=== PATIENT | male | born 1985 | race Caucasian/White ===

== ENCOUNTER 2023-05-26 06:02 | Day surgery (SDC) | payer OTHER, SELFPAY ==
[2023-05-26] VITALS (8 sets, daily range): BP systolic 102–114; BP diastolic 74–86; PULSE 54–67; RESP 16–17; TEMP 36.4–36.9; O2SAT 99–100; BMI 22.1
--- OUTSIDE RECORDS SUMMARY | 2023-05-26 06:14 | XMS RPT_ITS | CCD ---
Author Name Unknown Address [facility] [place] [address] Organization [facility] Care Team Providers Care Correctional Nurse Name Role Phone ERYN LEÓN Referring Unavailable ERYN LEÓN Consulting Unavailable KAMI LOCKHART DO Attending Unavailable RICHY, KAMI ZUÑIGA Primary Care Unavailable KAMI LOCKHART DO Admitting Unavailable PROVIDER, UNKNOWN Consulting Unavailable FERNANDO, DR LAYO Euceda Attending Unavaila ble FERNANDO, DR LAYO Euceda Primary Care Unavaila ble FERNANDO, DR LAYO Euceda Admitting Unavaila ble ERYN LEÓN Consulting Unavailable PROVIDER, UNKNOWN Consulting Unavailable Problems Active Problems Problem Classification Problem Date Documented Da te Episodic/Chronic Unclassified (2 sources) CONTACT WITH AND SUSPECTED EXPOSURE TO COVID-19; Translations: [CONTACT WITH AND SUSPECTED EXPOSURE TO COVID-19] Onset: 12-23-2020 Past or Other Problems Problem Classification Problem Date Documented Da te Episodic/Chronic Unclassified (1 source) CONTACT WITH AND SUSPECTED EXPOSURE TO COVID-19; Translations: [CONTACT WITH AND SUSPECTED EXPOSURE TO COVID-19] Onset: 12-23-2020 Results Test Name Value Interpretation Reference Range Facil ity Encounters Encounter Date Encounter Type Care Provider Facility Start: 01-03-2021 End: 01-03-2021 Emergency department patient visit ERYN LEÓN [facility] Start: 12-23-2020 End: 12-23-[address] LAYO KING [facility] Payers Date Payer Category Payer Unknown [id number] 1985 Unknown [id number] 1985 Unknown [id number] Summary Purpose Family History No Family History Records Found Advance Directives No Advanced Directives Records Found Additional Source Comments (unrecognized sect ion and content) No Status Records Found INFORMATION SOURCE (unrecogn ized section and content) FOR RECORDS PERTAINING TO PATIENTS WHO ARE OR HAVE BEEN ENROLLED IN A CHEMICAL DEPENDENCY/SUBSTANCEABUSE PROGRAM, SOME INFORMATION MAY BE OMITTED. This clinical summary was aggregated from multiple sources. Caution should be exercised in using it in the provision of clinical care. This summary normalizes information from multiple sources, and as a consequence, information in this document may materially change the coding, format and clinical context of patient data. In addition, data may be omitted in some cases. CLINICAL DECISIONS SHOULD BE BASED ON THE PRIMARY CLINICAL RECORDS. [facility] provides no warranty or guarantee of the accuracy or completeness of information in this document.
[2023-05-26] MEDS: Lactated Ringers 1,000 ML 15 ML IV (06:37)
--- NOTE | 2023-05-26 06:55 | HP.PCM_ITS ---
History and Physical Date of Admission: 05/26/23 Intake Vital Signs 02/23/2308:03 Height 6 ft Weight: 164 lb 6 oz BMI 22.3 BP 108/71 Blood Pressure Location Rt brachial Position Sitting Respiration 18 Pulse 52 L Pulse Source Monitor Temp 97.3 F L Temp Source Temporal Pulse Oximetry (%) 100 Oxygen Delivery Method room air Intake Visit Reasons: UMBILICAL HERNIA Chief Complaint: Umbilical hernia Department Mgr Required: No Is patient in pain?: No Allergies No Known Allergies Allergy (Unverified 02/22/23 08:05) Medications NK 02/22/23 [History Confirmed 02/22/23] PFSH Medical History (Updated 02/22/23 @ 09:[address] Nick Storey MD) Umbilical hernia Surgical History (Updated 02/22/23 @ 08:[address]) No history of previous surgery Family History (Updated 02/22/23 @ 08:[address]) Son AsthmaMother Breast cancerFather Cancer Thyroid Social History (Updated 02/22/23 @ 08:[address]) Smoking Status: Never smoker alcohol intake: current alcohol intake frequency: a few times a month substance use type: does not use HPI HPI HPI: Patient is a 37-year-old male here with umbilical hernia. He reports that has grown a little bit larger recently. He is very active. He denies any nausea or vomiting. ROS General General: No weight change, appetite, fatigue, colon cancer, breast cancer or weakness HEENT HEENT: No difficulty swallowing, eye injury, eye surgery, swollen glands or hoarseness Endo Endocrine: No thyroid disease, diabetes mellitus, thyroid cancer, Hair loss, heat intolerance or cold intolerance Skin Skin: No rash or changing moles Breast Breast: No left breast lump, right breast lump, nipple discharge, breast pain, abnormal mammogram, abnormal US or breast enlargement Musc Musculoskeletal: No back problems, arthritis, rheumatoid arthritis, gout or joint pain Cardio Cardiovascular: No murmur, pacemaker, heart disease, atrial fibrillation, high blood pressure, heart attack, heart stent, palpitations, shortness of breat with exertion or chest pain Psych Psychiatric: No depression, anxiety or hearing voices Resp Respiratory: No shortness of breath, No sleep apnea, No cough, No COPD, No asthma, No emphysema and No wheezing Gastro Gastrointestinal: No abdominal pain, No nausea or vomiting, No diarrhea, No constipation, No blood in stool, No acid reflux, No hemorrhoids, No ulcers, No gallbladder problem and No black,tarry stools Johann Hematologic: No blood thinners, No blood disorders, No bleeding, No anemia and No blood clots Neuro Neurologic: No system reviewed and no additional complaints, except as documented, No as per HPI, No abnormal gait, No abnormal hearing, No abnormal movements, No abnormal speech, No behavioral changes, No burning sensations, No confusion, No convulsions, No disequilibrium, No dizziness, No localized weakne ss, No frequent falls, No headache(s), No lack of coordination, No loss of vision, No memory loss, No numbness, No other visual disturbances, No radicular pain, No restless legs, No sensory deficit, No syncope, No tingling, No tremor(s), No weakness and No other Exam Const General: cooperative Orientation: alert and oriented x3 HENMT Head: normal to inspection Neck Neck: normal visual inspection and full ROM Chest Chest palpation & inspection: normal inspection of the chest Resp Effort & Inspection: normal respiratory effort Auscultation: clear to auscultation bilaterally Cardio Rate: regular rate Rhythm: regular rhythm GI Inspection: non-distended Palpation: soft, hernia umbilical and nontender Skin General: no rashes or lesions noted Neuro General: patient alert and patient oriented x3 Extrem General: full ROM Psych Appearance: grossly normal Mental Status: mental status grossly normal Assessment and Plan Assessment and Plan (1) Umbilical hernia: Status: Acute Qualifiers: Obstruction and gangrene presence: without obstruction or gangrene Qualified Code(s): K42.9 - Umbilical hernia without obstruction or gangrene Plan: The patient has a small umbilical hernia containing fat that is reducible. He would like it repaired before it grows too large and he would require mesh. The hernia does feel very small and I believe we could easily repair this with sutures under MAC local. The patient would like to avoid general anesthetic if possible. I discussed the surgery in detail and I discussed the risks including abdominal to bleeding, infection, injury to underlying organs. I also discussed postoperative care and all of his questions were answered. Patient will be scheduled for umbilical hernia repair without mesh. Nick Storey MD Pager: [facility] [address] [place] [address], [address] [place] [address] Office: I have examined the patient and the H&P has been reviewed. There are no clinical changes since date of exam.
[2023-05-26] MEDS: Cefazolin 2 GM in 0.9% Normal Saline (100mL Bag) 100 ML IV (07:25)
[2023-05-26] MEDS: Lidocaine 1% (30 ml sdv) 30 ML Vial (07:47)
[2023-05-26] MEDS: Bupivacaine Mpf 0.5% 30 ML VIAL (07:47)
--- NOTE | 2023-05-26 08:02 | PCM.OPRPT ---
Report of Operation Date of Procedure: 05/26/23 Pre-Operative Diagnosis: Umbilical hernia less than 3 cm Post-Operative Diagnosis: Same Surgery/Procedure Performed:: Umbilical hernia repair less than 3 cm Type of Anesthesia: Local MAC Specimen's removed: None Estimated Blood Loss (mL): 2 Description of Procedure: Patient was brought back to the operating room and MAC anesthesia was induced. The abdomen was prepped and draped in the usual sterile fashion. A curvilinear incision was marked inferior to the umbilicus and then injected with local anesthetic. Incision was made with a scalpel and electrocautery was used to maintain hemostasis. The umbilical stalk was sharply taken off of the umbilical hernia sac. The hernia sac and its contents were then reduced. The hernia was approximately 2 mm in size. It was closed with a [id number] Nurolon suture. The area was irrigated and suctioned dry. The umbilical stalk was tacked back to the fascia using a 3-0 Vicryl suture. The skin was closed with interrupted 3-0 Vicryl sutures. Steri-Strips and bandages were applied. Patient was awoken and taken to PACU in stable condition. Grafts/Implants Used: No mesh was used Admit VTE Documentation VTE Mechan Device Prophylaxis: SCD's
--- NOTE | 2023-05-26 08:03 | DCINST_ITS ---
Discharge Instructions Diet Discharge Diet: Light diet - advance as tolerated Activity Discharge Activity: May Drive (In 2 to 3 days and after off of narcotics) and May Shower (Tomorrow over bandage) Lifting Restrictions: 15 pounds for 2 weeks Dressing / Incision Call your doctor if your incision/area has: Continuous Slow Oozing, Sudden Increased Bleeding, Increased Pain/ Swelling, Increased Redness, Foul Smelling Discharge and Swelling at the incision site Call your doctor if you observe: Fever of 101 or Higher Remove Dressing in: 3 days (Remove clear dressing in cottonball in 3 days, remove Steri-Strips in 7 to 10 days.) Cleanse incision/area with: Soap & Water Additional Dressing/Incision Instructions:: Alternate ibuprofen and Tylenol for pain, oxycodone for breakthrough pain. Follow Up Care Please Follow Up With: Nick Storey MD When: Please call to schedule 2 week follow up appointment. [phone] Test Results: Test results from this visit will be discussed in further detail at your follow- up appointment, if applicable. Discharge Plan Admission Attending Provider: Nick Storey Primary Care Provider: Ofelia Veliz Discharge Orders/Prescriptions Prescriptions: New acetaminophen 325 mg Tablet 650 mg PO Q4H PRN PRN (Reason: Pain Or Fever) Qty: 0 0RF ibuprofen 600 mg Tablet 600 mg PO Q6H PRN PRN (Reason: Pain 1-10 or Fever) Qty: 0 0RF oxycodone 5 mg Tablet 5 - 10 mg PO Q4H PRN PRN (Reason: Pain Score 4-10/10) 5 Days Qty: 10 0RF No Action amoxicillin-pot clavulanate [Augmentin] .ROUTE Referrals / Follow Up: Ofelia Veliz PA [Primary Care Provider] - Disposition Disposition (needs filled in before D/C Order can be placed): Home, Self Care
[2023-05-26] MEDS: Ibuprofen 200 MG Tablet 600 MG PO (09:04)
== END 2023-05-26 10:00 | disposition home or self-care (01) ==
LOC: SDC 06:03 → AC 06:20
PROVIDERS: PCP Physician Assistant; Referring Provider Surgery; Visit Provider Surgery
PROC: (CPT 49591; principal; 2023-05-26 07:15)
DX: K42.9 Umbilical hernia without obstruction or gangrene (principal)
CPT/HCPCS: 49591; 00830; J7120; J2405